=== PATIENT | male | born 1985 | race Caucasian/White ===

== ENCOUNTER 2018-11-24 13:54 | Emergency (ER) | payer OTHER ==
[2018-11-24] MEDS: LORAZEPAM 0.5 MG TAB PO (16:58)
[2018-11-24] MEDS: IBUPROFEN 600 MG TAB PO (16:58)
== END 2018-11-24 18:19 | disposition home or self-care (01) ==
LOC: FTE 13:54
DX: M54.2 Cervicalgia (principal); M25.512 Pain in left shoulder
CPT/HCPCS: 70450; 71046; 72040; 73030; 99284-25